=== PATIENT | female | born 1960 | race Caucasian/White ===

== ENCOUNTER 2018-02-19 06:23 | Inpatient (IN) | payer BC ==
[2018-01-21 10:56] VITALS: BMI 25.1
[~2018-02-19 06:23] MED LIST: CEFAZOLIN 1 GM/D5W 1 GM/50 ML BAG IVPB ONE; CELECOXIB 200 MG CAPSULE PO ONE; GABAPENTIN 300 MG CAPSULE (FP) PO ONE; TRANEXAMIC ACID 1000 MG/10 ML VIAL IVPUSH ONE; oxyCODONE HCL 10 MG SUSTAINED ACTING TABLET PO ONE
[2018-02-19] MEDS ORDERED: GABAPENTIN 300 MG CAPSULE (FP) ONE (06:49)
[2018-02-19] MEDS ORDERED: CELECOXIB 200 MG CAPSULE ONE (06:49)
[2018-02-19] MEDS ORDERED: oxyCODONE HCL 10 MG SUSTAINED ACTING TABLET ONE (06:49)
[2018-02-19] MEDS ORDERED: PROPOFOL 20 ML ONE (07:04)
[2018-02-19] MEDS ORDERED: SUCCINYLCHOLINE CHLORIDE 200 MG/10 ML VIAL ONE (07:05)
[2018-02-19] MEDS ORDERED: ceFAZolin SODIUM 1 GM VIAL ONE (07:13)
[2018-02-19] MEDS ORDERED: VANCOMYCIN 1,000 MG VIAL (RESTRICTED TO ID ONLY) ONE (07:13)
[2018-02-19] MEDS ORDERED: EPINEPHrine/PF 1 MG/1 ML (1:1,000) AMPULE ONE (07:28)
[2018-02-19] MEDS ORDERED: DEXAMETHASONE SOD PHOSPHATE/PF 10 MG/ML SDV ONE (07:28)
[2018-02-19] MEDS ORDERED: MIDAZOLAM HCL 2 MG/2 ML SINGLE DOSE VIAL ONE (07:28)
[2018-02-19] MEDS ORDERED: ROPIVACAINE HCL 0.5% 30ML VIAL ONE (07:28)
--- NOTE | 2018-02-19 07:51 | HP ---
Satellite [facility] - Chief Complaint Chief Complaint: right hip pain - Past Medical History Allergies/Adverse Reactions: Allergies Allergy/AdvReac Type Severity Reaction Status Date / Time No Known Drug Allergies Allergy Verified 01/21/18 10:44 - Current Medications Current Medications: Home Medications Medication Instructions Recorded Atorvastatin Ca [Lipitor] 10 mg PO HS 03/23/15 Amlodipine Besylate [Norvasc -] 10 mg PO DAILY 01/21/18 Calcium Carbonate [Calcium] 1,000 mg PO DAILY 01/21/18 Magnesium Oxide [Magnesium] 500 mg PO DAILY 01/21/18 Multivitamin [Multiple Vitamins] 1 each PO DAILY 01/21/18 Satellite Physical Exam - Physical Examination Vital Signs: Vital Signs Period Temp Pulse Resp BP Sys/Simmons Pulse Ox Last 24 Hr 98.8 F 80 18 113/76 General Appearance: Well Nourished, Well Developed, Alert & Oriented x3 ENT: Clear Lung: Normal air movement Heart: Regular rate & rhythm Extremities: Other (right hip- +ttp, decr rom, nvi xrays show grade 4 hip djd) Neurological: Intact, Alert, Oriented Satellite Impression/Plan - Impression/Plan Impression: right hip djd Operative Procedure: right coral thr Date to be Performed: 02/19/18
[2018-02-19] MEDS ORDERED: ePHEDrine SULFATE 50 MG/1 ML AMPULE ONE (08:45)
[2018-02-19] MEDS ORDERED: VANCOMYCIN 1,000 MG VIAL (RESTRICTED TO ID ONLY) IVPB ONE (09:06)
[2018-02-19] MEDS ORDERED: MAG HYDROX/AL HYDROX/SIMETH 30 ML UNIT-DOSE CUP PO PRN (09:28)
[2018-02-19] MEDS ORDERED: MAGNESIUM HYDROX 2400MG/30ML ORAL SUSPENSION 30 ML CUP PO PRN (09:28)
[2018-02-19] MEDS ORDERED: ONDANSETRON 4 MG/2 ML VIAL IVPUSH PRN (09:28)
[2018-02-19] MEDS ORDERED: LACTATED RINGERS SOLUTION 1,000 ML IV SCH (09:30)
--- NOTE | 2018-02-19 09:30 | OP ---
Operative Note - Note: Operative Date: 02/19/18 (katya) Pre-Operative Diagnosis: right hip djd Operation: right coral thr Post-Operative Diagnosis: Same as Pre-op Surgeon: Mario Mercer Lab Manager: Rene Treviño) Anesthesiologist/THEATRICAL PERFORMER: Jesus Esparza Anesthesia: Spinal, Local Specimens Removed: femoral head Estimated Blood Loss (mls): 100 Operative Report Dictated: Yes
[2018-02-19] MEDS ORDERED: oxyCODONE HCL 5 MG TABLET ONE (11:41)
[2018-02-19] MEDS ORDERED: ACETAMINOPHEN 325 MG TABLET (FP) ONE (11:41)
[2018-02-19] MEDS ORDERED: ACETAMINOPHEN 325 MG TABLET (FP) PO ONE (11:43)
[2018-02-19] MEDS ORDERED: oxyCODONE HCL 5 MG TABLET PO ONE (11:44)
[2018-02-19] MEDS ORDERED: oxyCODONE HCL 5 MG TABLET PO PRN (13:47)
[2018-02-19] MEDS ORDERED: CEFAZOLIN 1 GM/D5W 1 GRAM/50 ML BAG IVPB SCH (16:00)
[2018-02-19] MEDS: CEFAZOLIN 1 GM/D5W 1 GRAM/50 ML BAG IVPB SCH ×2 (16:58→23:58)
[2018-02-19] MEDS: oxyCODONE HCL 5 MG TABLET PO PRN ×2 (17:03→20:24)
--- NOTE | 2018-02-19 19:14 | OP ---
DATE OF OPERATION: 02/19/2018 PREOPERATIVE DIAGNOSIS: Degenerative joint disease right hip. POSTOPERATIVE DIAGNOSIS: Degenerative joint disease right hip. PROCEDURE PERFORMED: Right total hip replacement with robotic-assisted navigation (MAKOplasty). SURGICAL ATTENDING: Mario Mercer M.D. GUEST RELATIONS MANAGER: GRANT Hanks, and Anup Calderon M.D. ANESTHESIA: Regional and spinal. CLOSURE: A Doug hip system with a 48 Press-Fit Trident 2 acetabulum, a plus 3 MDM head, and a number 4 Accolade 2 stem. Number 1 Vicryl for fascia, 0 and 2-0 subcutaneous, 3-0 Monocryl subcuticular, for skin with skin glue, 4-0 undyed Vicryl for pin sites. ESTIMATED BLOOD LOSS: Less than 100 mL. COMPLICATIONS: None. CONDITION: To the recovery room in stable condition. DESCRIPTION OF PROCEDURE: The patient was taken to the operating room on May 29, 2017. General and regional anesthesia was administered by the anesthesiologist. IV Kefzol and TXA were administered prophylactically prior to the case. The patient was placed in the lateral decubitus position will all prominences well-padded. The right hip area was prepped and draped in the usual sterile fashion. Using 3 small stab incisions over the iliac crest, 3 threaded pins were drilled in power fashion through the 2 tables of the crest. These pins were fastened and the navigation array for the Yonathan navigation system. Next, a 12 to 15-cm curved longitudinal incision over the posterolateral aspect of the greater trochanter was incised. Hemostasis was achieved with Bovie cautery. Sharp dissection was carried down to level of the fascia. The fascia was opened the entire length of the incision, spreading the fibers of the gluteus terri in the direction of origin. A Charnley retractor was placed in this layer. Care was taken not to impale the sciatic nerve. The short external rotators were detached off the insertion of the greater trochanter and peeled off the capsule. A posterior capsulotomy was then performed. A check point was malleted into the greater trochanter and a point on the inferior pole of the patella was obtained as well. These 2 points were used to assess the preoperative offset and limb lengths of the hip. The hip was then dislocated. The femoral neck was then osteotomized down to the appropriate level as directed by the navigation device. Anterior and posterior retractors were placed, exposing the acetabulum. A circumferential labral excision was performed. A check point was malleted into the acetabulum as well. Multiple sites inside the acetabulum and around the rim were utilized to register the acetabulum with the navigation device. An excellent registration of less than 0.5 mm was obtained. The hip was then reamed with the appropriate reamer down to the appropriate depth, with the appropriate orientation and version as assessed on our preoperative plan for this patient. The reamer was removed and the acetabulum was inspected to have good bleeding surfaces throughout. The real acetabular cup was then malleted down into place, with the holes in the appropriate position, until an excellent fixation was obtained. No screws were necessary. The navigation device ensured appropriate orientation and version, with the depth as predetermined. The appropriate liner was then clipped into place. Attention was directed to the femur. The proximal femur was prepared by use a box chisel, a canal finder and serial broaches until the broach achieved excellent rigidity in the proximal femur with the appropriate version being applied. A calcar planer was used to smooth off the calcar flush with the trial components. A trial reduction with the appropriate head was done, and the hip was reduced. The hip was taken through a range of motion from full extension with external rotation to marked flexion, and was stable at 90 degrees of flexion. It was stable to marked abduction and internal rotation, with a positive hang test and negative telescoping. Limb lengths were ascertained visually as well as with the navigation device to be within the targeted range for this patient. The trial component was removed. The real component was then malleted into place. The head was cold welded to the trunnion, and the hip was reduced. Range of motion, stability and limb lengths were as described in the trial component. Then the hip was pulse antibiotic irrigated. Vancomycin powder was placed in the hip joint. The capsule was closed. The fascia was then closed as well using number 1 Vicryl interrupted suture, 0 and 2-0 subcutaneous, and 3-0 V-Loc for the skin. 4-0 undyed Vicryl was used to close the pin sites after the pins were removed. All check points were also removed. Sterile Aquacel dressing was applied. The patient was awakened from anesthesia and transferred into the supine position. Bilateral SCDs and an abduction pillow were placed. X-rays revealed excellent position of the components. The patient was transferred to the recovery room in stable condition, with no complications. Estimated blood loss was less than 100 mL. Erik AMIN/[id number]
[2018-02-19] MEDS: GABAPENTIN 300 MG CAPSULE (FP) PO SCH (22:10)
[2018-02-19] MEDS: oxyCODONE HCL 10 MG SUSTAINED ACTING TABLET PO SCH (22:10)
[2018-02-19] MEDS: SENNOSIDES/DOCUSATE COMBO (SENNA PLUS) TABLET (UD) PO SCH (22:11)
[2018-02-20] MEDS: oxyCODONE HCL 5 MG TABLET PO PRN ×4 (04:56→20:19)
[2018-02-20 08:15] LABS: HEMATOCRIT 40.4 % (32.4-45.2); HEMOGLOBIN 13.6 GM/dl (10.7-15.3); MCH 30.4 pg (25.7-33.7); MCHC 33.7 g/dl (32.0-36.0); MEAN CELL VOLUME 90.1 fl (80-96); MEAN PLT VOLUME 8.4 fl (7.5-11.1); PLATELET COUNT 274 K/MM3 (134-434); RBC 4.49 M/mm3 (3.60-5.2); RDW 13.6 % (11.6-15.6); WHITE BLOOD COUNT 10.7 K/mm3 (4.0-10.8)
[2018-02-20] MEDS: ASPIRIN 325 MG TABLET PO SCH (08:47)
--- NOTE | 2018-02-20 09:24 | PN ---
Progress Note (short form) - Note Progress Note: Ortho Pt seen and examined s/p right coral thr pod #1 Selected Entries 02/20/18 06:22 Temperature 98.2 F Pulse Rate 69 Respiratory 18 Rate Blood Pressure 124/70 Laboratory Tests 02/20/18 07:05 WBC 10.7 Hgb 13.6 Hct 40.4 Plt Count 274 dressing c/d/i, calf soft, nt, nvi a/p PT hip precautions dvt ppx pain control d/c home tomorrow if stable
[2018-02-20] MEDS: MULTIVITAMINS (DAILY MVI) TABLET (FP) PO SCH (10:06)
[2018-02-20] MEDS: GABAPENTIN 300 MG CAPSULE (FP) PO SCH ×2 (10:07→21:34)
[2018-02-20] MEDS: oxyCODONE HCL 10 MG SUSTAINED ACTING TABLET PO SCH ×2 (10:07→21:33)
[2018-02-20] MEDS: SENNOSIDES/DOCUSATE COMBO (SENNA PLUS) TABLET (UD) PO SCH ×2 (10:08→21:33)
[2018-02-20] MEDS: PANTOPRAZOLE 40 MG TABLET (FP) PO SCH (10:08)
[2018-02-20] MEDS: amLODIPine BESYLATE 10 MG TABLET (FP) PO SCH (10:08)
--- NOTE | 2018-02-20 12:43 | PN ---
Progress Note (short form) - Note Progress Note: 57F POD1 s/p R THR under spinal anesthetic with peripheral nerve block for post operative pain relief. Pt states that her pain is well controlled and denies any anesthetic complications. AVSS. Motor and sensory function intact in bilateral lower extremities. Continue current regimen.
[2018-02-20] MEDS ORDERED: ATORVASTATIN CA 10 MG TABLET (FP) PO SCH (22:00)
[2018-02-21 06:38] VITALS: PULSE 92
[2018-02-21 07:27] VITALS: TEMP 98.4
--- NOTE | 2018-02-21 08:11 | PN ---
Progress Note (short form) - Note Progress Note: Ortho Pt seen and examined s/p right coral thr pod #2 Selected Entries 02/21/18 02/21/18 06:37 07:26 Temperature 98.4 F Pulse Rate 92 H Respiratory 20 Rate Blood Pressure 122/65 Laboratory Tests 02/20/18 07:05 WBC 10.7 Hgb 13.6 Hct 40.4 Plt Count 274 dressing c/d/i, calf soft, nt, nvi a/p PT hip precautions dvt ppx pain control d/c home today f/u in 1 week
--- NOTE | 2018-02-21 08:12 | DS ---
Physical Examination Vital Signs: Vital Signs Temperature 98.4 F 02/21/18 07:26 Pulse Rate 92 H 02/21/18 06:37 Respiratory Rate 20 02/21/18 06:37 Blood Pressure 122/65 02/21/18 06:37 O2 Sat by Pulse Oximetry (%) 97 02/21/18 06:37 Labs: CBC, BMP 02/20/18 07:05 Discharge Summary Reason For Visit: OSTEOARTHRITIS Procedures: Principal: right thr Hospital Course: admitted for elective right coral thr, uneventful post-op, stable fro d/c Condition: Good - Instructions Diet, Activity, Other Instructions: Post-op Instructions-Total Hip Replacement Call the office for a follow-up appointment in 1 week - [phone] Aspirin 325mg daily for 6 weeks. Pain medication was sent into your pharmacy. Apply Graduated Compression Stockings (TEDs) to both lower extremities- remove daily for hygiene ONLY Apply Sequential Compression Device (SCDs) to both Lower extremities remove for PT and hygiene ONLY Apply cold packs to affected area for 15 minutes every 2 hours. Physical Therapist will come to your home for the first 5 days. You will be set up with outpatient PT at your first post-operative visit. Patient may ambulate as tolerated-encourage self care (at least every 2-3 hours while awake) with walker or cane Maintain Aquacel (waterproof) dressing to operative wound (will be removed by surgeon at first office visit) Shower with Aquacel dressing in place-if Aquacel integrity compromised, remove and apply dry sterile dressing and notify Orthopedist. DO NOT SHOWER unless Orthopedists approves without Aquacel dressing CONTACT THE OFFICE FOR ANY CHANGE IN YOUR CONDITION (for example-fever greater than 102 degrees, excessive bleeding from operative site, purulent drainage, severe swelling or pain) GO TO THE EMERGENCY ROOM IF THERE IS A MEDICAL EMERGENCY Hip Precautions: * Keep a rolled towel under affected heel while in bed or chair (to keep knee in extension) * Dependent upon approach: * Posterior - do not cross legs; do not sit on low chairs or toilets. * If you have any questions, please do not hesitate to call the office - . Referrals: Anup Calderon MD [Staff Physician] - Disposition: VNS/HOME HEALTH CARE - Home Medications Comprehensive Discharge Medication List: Ambulatory Orders Atorvastatin Ca [Lipitor] 10 mg PO HS 03/23/15 Amlodipine Besylate [Norvasc -] 10 mg PO DAILY 01/21/18 Calcium Carbonate [Calcium] 1,000 mg PO DAILY 01/21/18 Magnesium Oxide [Magnesium] 500 mg PO DAILY 01/21/18 Multivitamin [Multiple Vitamins] 1 each PO DAILY 01/21/18 Aspirin [ASA -] 325 mg PO DAILY@0800 tablet 02/19/18 Oxycodone HCl/Acetaminophen [Percocet 5-325 mg Tablet -] 1 - 2 tab PO Q6H #50 tab MDD 8 02/19/18
[2018-02-21 09:12] LABS: HEMATOCRIT 38.5 % (32.4-45.2); HEMOGLOBIN 13.2 GM/dl (10.7-15.3); MCHC 34.3 g/dl (32.0-36.0); MEAN CELL VOLUME 90.4 fl (80-96); MEAN PLT VOLUME 9.2 fl (7.5-11.1); PLATELET COUNT 240 K/MM3 (134-434); RBC 4.26 M/mm3 (3.60-5.2); RDW 13.7 % (11.6-15.6); WHITE BLOOD COUNT 9.3 K/mm3 (4.0-10.8)
[2018-02-21] MEDS: SENNOSIDES/DOCUSATE COMBO (SENNA PLUS) TABLET (UD) PO SCH (09:49)
[2018-02-21] MEDS: PANTOPRAZOLE 40 MG TABLET (FP) PO SCH (09:50)
[2018-02-21] MEDS: MULTIVITAMINS (DAILY MVI) TABLET (FP) PO SCH (09:50)
[2018-02-21] MEDS: amLODIPine BESYLATE 10 MG TABLET (FP) PO SCH (09:51)
[2018-02-21] MEDS: GABAPENTIN 300 MG CAPSULE (FP) PO SCH (09:51)
[2018-02-21] MEDS: ASPIRIN 325 MG TABLET PO SCH (09:51)
[2018-02-21] MEDS: oxyCODONE HCL 10 MG SUSTAINED ACTING TABLET PO SCH (09:51)
[2018-02-21 10:00] VITALS: BP 115/54
[2018-02-24 10:01] LABS: HBsAG SCREEN NEGATIVE
--- NOTE | 2018-03-06 07:20 | PATH ---
Surgical Pathology Report Patient Name: ASHLEIGH JAMES Med. Rec. #: [id number] /Age/Gender: 1960 (Age: 57) / F Account: [id number] Location: [facility] MED-SURG Taken: 02/19/2018 Received: 02/19/2018 Reported: 02/21/2018 Physicians: Erik Proctor M.D. Specimen(s) Received RIGHT FEMORAL HEAD Clinical History Osteoarthritis right hip Final Diagnosis FEMORAL HEAD, RIGHT, TOTAL HIP REPLACEMENT: DEGENERATIVE JOINT DISEASE. Electronically Signed Sharon Molina M.D. Gross Description Received in formalin, labeled "right femoral head," is a 4.5 x 4.5 x 3.8 cm. femoral head with a 1.3 cm in length portion of femoral neck attached. The margin of resection is smooth. There is a 4.3 cm greatest dimension area of eburnation present. The remaining articular surface is zhu-yellow and diffusely granular. The underlying trabecular bone is yellow and hard. A freight representative section is submitted in one cassette, following decalcification. /02/20/2018 saudi02/20/2018
== END 2018-02-21 12:50 | disposition home health service (06) | DRG 470 ==
LOC: FM/S 06:23
PROVIDERS: ADMIT Orthopaedic Surgery; ATTEND Orthopaedic Surgery
PROC: 8E0Y0CZ Robotic Assisted Procedure of Lower Extremity, Open Approach (ICD-10-PCS; 2018-02-19)
PROC: 0SR901Z Replacement of Right Hip Joint with Metal Synthetic Substitute, Open Approach (ICD-10-PCS; principal; 2018-02-19 08:00)
DX: M16.11 Unilateral primary osteoarthritis, right hip (principal)
CPT/HCPCS: 36415; 73502-TC-RT; 84460; 85027; 86803; 87340; 87389; 88304-TC; 88311-TC; 97116-GP; 97162-GP